=== PATIENT | male | born 1990 ===

== ENCOUNTER 2017-01-23 09:03 | Emergency (ER) | payer BC ==
[2017-01-23 09:21] VITALS: BP 131/69
--- NOTE | 2017-01-23 11:21 | UC ---
Geoffrey Francois Anna, scribed for Rachele Moralez DO on 01/23/17 at 1039 . Bite Injury/Animal HPI - HPI Summary HPI Summary: Patient is a 26 y/o male coming to [facility] presenting with a tick bite in his groin area that he believes occurred at 1700 last night. Per triage notes, the severity of the pain is described as 3/10. The patient noticed the tick this morning when he woke up, and he found the area to be painful. He went on a walk in a wooded area at 1700 last evening. H states that he does not believe that the tick could have been attached for more than 24 hours. He denies fever. Patient medications were reviewed this visit. - History of Current Complaint Chief Complaint: Candido Stated Complaint: TICK BITE Time Seen by Provider: 01/23/17 10:30 Hx Obtained From: Patient Severity Currently: Moderate Severity Initially: Moderate Pain Intensity: 3 Pain Scale Used: 0-10 Numeric Onset/Duration: Sudden Onset, Lasting Hours, Still Present Type of Bite: Animal - tick Aggravating Factor(s): Nothing Alleviating Factor(s): Nothing Associated Signs And Symptoms: Positive: Negative - Allergies/Home Medications Allergies/Adverse Reactions: Allergies Allergy/AdvReac Type Severity Reaction Status Date / Time No Known Allergies Allergy Verified 01/23/17 09:17 PMH/Surg Hx/FS Hx/Imm Hx Previously Healthy: Yes Endocrine History Of: Denies: Diabetes, Thyroid Disease Cardiovascular History Of: Denies: Cardiac Disorders, Hypertension Respiratory History Of: Denies: COPD, Asthma GI/ History Of: Denies: Ulcer - Surgical History Surgical History: None - Family History Known Family History: Negative: Cardiac Disease, Hypertension, Diabetes - Social History Occupation: Employed Full-time Alcohol Use: Weekly Substance Use Type: None Smoking Status (MU): Never Smoked Tobacco Review of Systems Constitutional: Negative Skin: Other - tick bite Eyes: Negative ENT: Negative Respiratory: Negative Cardiovascular: Negative Gastrointestinal: Negative Genitourinary: Negative Motor: Negative Neurovascular: Negative Musculoskeletal: Negative Neurological: Negative Psychological: Negative All Other Systems Reviewed And Are Negative: Yes Physical Exam Triage Information Reviewed: Yes Appearance: Well-Appearing, No Pain Distress, Well-Nourished, Thin - Skinny Vital Signs: Initial Vital Signs Temp 98.7 F 05/28/17 09:18 Pulse 55 01/23/17 09:18 Resp 18 01/23/17 09:18 BP 131/69 01/23/17 09:18 Pulse Ox 100 01/23/17 09:18 Vital Signs Reviewed: Yes Eyes: Positive: Conjunctiva Clear. Negative: Discharge ENT: Positive: Hearing grossly normal. Negative: Muffled/hoarse voice Neck exam: Normal Neck: Positive: Supple Respiratory: Positive: Lungs clear, Normal breath sounds, No respiratory distress, No accessory muscle use Cardiovascular: Positive: RRR, No Murmur Musculoskeletal Exam: Normal Neurological: Positive: Alert, Muscle Tone Normal Psychological Exam: Normal Psychological: Positive: Age Appropriate Behavior Skin Exam: Other - tick attached to left scrotum and removed with tick twister, otherwise warm, dry, normal color Bite Injury Course/Dx - Course Course Of Treatment: Full tick was removed with no complications. - Differential Dx/Diagnosis Provider Diagnoses: TICK BITE Discharge - Discharge Plan Condition: Stable Disposition: HOME Patient Education Materials: Tick Bite (ED) Referrals: [facility] [Outside] The documentation as recorded by the Geoffrey guaman Anna accurately reflects the service I personally performed and the decisions made by Kirt pablo Michelle A, DO.
== END 2017-01-23 10:43 | disposition home or self-care (01) ==
LOC: UCEAST 09:03
DX: S30.861A Insect bite (nonvenomous) of abdominal wall, initial encounter (principal); W57.XXXA Bitten or stung by nonvenomous insect and other nonvenomous arthropods, initial encounter; Y93.9 Activity, unspecified; Y92.9 Unspecified place or not applicable
CPT/HCPCS: 99211; G0463